=== PATIENT | female | born 1950 | race Caucasian/White ===

== ENCOUNTER 2020-08-23 13:19 | Outpatient (CLI) | payer MEDICARE | END 2020-08-23 13:20 | disposition home or self-care (01) | LOC: CSHMRI 13:19 | PROVIDERS: ATTEND Nurse Practitioner Acute Care | DX: R26.89 Other abnormalities of gait and mobility (principal); R42 Dizziness and giddiness; I67.82 Cerebral ischemia; J34.9 Unspecified disorder of nose and nasal sinuses | CPT/HCPCS: 70553; 82565 ==

== ENCOUNTER 2021-03-18 12:07 | Outpatient (CLI) | payer MEDICARE | END 2021-03-18 12:08 | disposition home or self-care (01) | LOC: CSHMAMMO 12:07 | PROVIDERS: ATTEND Family Medicine | DX: Z12.31 Encounter for screening mammogram for malignant neoplasm of breast (principal); Z80.3 Family history of malignant neoplasm of breast | CPT/HCPCS: 77063; 77067 ==

== ENCOUNTER 2021-05-07 09:51 | Outpatient (CLI) | payer MEDICARE | END 2021-05-07 09:52 | disposition home or self-care (01) | LOC: CSHMRI 09:51 | PROVIDERS: ATTEND Nurse Practitioner Acute Care | DX: R27.0 Ataxia, unspecified (principal); M47.812 Spondylosis without myelopathy or radiculopathy, cervical region | CPT/HCPCS: 72141 ==

== ENCOUNTER 2022-04-10 14:15 | Outpatient (CLI) | payer MEDICARE | END 2022-04-10 14:16 | disposition home or self-care (01) | LOC: CSHMAMMO 14:15 | PROVIDERS: ATTEND Family Medicine | DX: Z12.31 Encounter for screening mammogram for malignant neoplasm of breast (principal); Z80.3 Family history of malignant neoplasm of breast | CPT/HCPCS: 77063; 77067 ==

== ENCOUNTER 2023-04-28 12:47 | Outpatient (CLI) | payer MEDICARE | END 2023-04-28 12:48 | disposition home or self-care (01) | LOC: CSHMAMMO 12:47 | PROVIDERS: ATTEND Family Medicine | DX: Z12.31 Encounter for screening mammogram for malignant neoplasm of breast (principal); Z80.3 Family history of malignant neoplasm of breast | CPT/HCPCS: 77063; 77067 ==

== ENCOUNTER 2024-05-01 08:48 | Outpatient (CLI) | payer MEDICARE | END 2024-05-01 08:49 | disposition home or self-care (01) | LOC: CSHMAMMO 08:48 | PROVIDERS: ATTEND Family Medicine | DX: Z12.31 Encounter for screening mammogram for malignant neoplasm of breast (principal); Z80.3 Family history of malignant neoplasm of breast | CPT/HCPCS: 77063; 77067 ==